=== PATIENT | female | born 1955 | race Caucasian/White ===

== ENCOUNTER 2019-09-10 09:22 | Emergency (ER) | payer OTHER, SELFPAY ==
--- NOTE | ~2019-09-10 | XR_ITS ---
EXAMINATION: XR chest 1V portable EXAM DATE: 09/10/2019 09:51 INDICATION: Slurred speech. TECHNIQUE: Portable AP frontal chest x-ray was obtained. Comparison is made to prior examination from 03/09/2014. FINDINGS: The lungs are clear. There are no pleural effusions. Cardiac silhouette is prominent but magnified on this AP technique. There is no pneumothorax suspected. The bones and soft tissues are unremarkable. Mild hyperinflation. IMPRESSION: No acute cardiopulmonary findings. Reviewed, dictated and finalized at location B. OR
--- NOTE | ~2019-09-10 | CT_ITS ---
EXAMINATION: CT brain wo con DATE: 09/10/2019 09:32 INDICATION: One hour of slurred speech, lack of coordination and unsteady gait and subjective visual disturbance. TECHNIQUE: Computed tomography (CT) of the head was performed without intravenous contrast. Sagittal and coronal reconstructions were performed. The mA was adjusted according to patient size. Iterative reconstruction technique was employed. The dose-length product was 605.33 mGy-cm. COMPARISON: head CT dated 11/21/2015 and brain MR dated 05/14/2019 FINDINGS: No acute intracranial hemorrhage, acute infarction or abnormal extra axial fluid collection. Ventricl es are normal and symmetric. No mass/mass effect. The orbits, paranasal sinuses and mastoid air cells are normal. IMPRESSION: 1. No acute intracranial process. Reviewed, dictated and finalized at location A. [facility]
--- NOTE | 2019-09-10 09:27 | ECG_ITS ---
Measurements Intervals [place] Rate: 68 P: 85 MO: 175 QRS: 28 QRSD: 106 T: 12 QT: 407 QTc: 433 Interpretive Statements SINUS RHYTHM VENTRICULAR PREMATURE COMPLEX BASELINE WANDER- V4 BORDERLINE ECG Electronically Signed On 09-10-2019 11:28:36 OVEN LOADER by Stephane Hughes D.O.
[2019-09-10 09:32] VITALS: BP 158/62; BP 179/103; PULSE 59; PULSE 78; RESP 12; RESP 16; TEMP 37; O2SAT 100; O2SAT 99
--- NOTE | 2019-09-10 09:32 | ED.NEUROSD ---
HPI - Neuro Symptoms/Deficit General Chief Complaint: Suspected CVA Stated Complaint: I dont feel right Time Seen by Provider: 09/10/19 09:39 Source: patient Mode of arrival: ambulatory Limitations: no limitations History of Present Illness HPI Narrative: A 64 y/o female presents to the ED, with c/o sudden onset of dizziness, blurred vision, and BLE weakness that began at 0800 (2 hours ago). Pt notes that she feels funny but when she first woke up she felt fine. She notes her blurred vision is worse in her lt eye and when standing up her dizziness worsens. She denies any alleviating factors. Pt denies any episodes similar to this in the past or any recent illness. She notes having a normal appetite and denies SANTILLAN, SOB or CP. Pt notes having allergies to medications but does not remember the names. She states she has a Hx of low white blood cell count that she is scheduled to follow up with someone about on September 21, 2019. Onset (ago): hour(s) (2) Time: 08:00 Location: other (lt eye, BLE) Quality: weak (BLE) Relieving factors: none Exacerbating factors: other (dizziness worsens upons standing) Context: sudden onset Associated symptoms: weakness (BLE) and other (dizziness, blurred vision) Related Data Home Medications Medication Instructions Recorded Confirmed alprazolam 09/10/19 magnesium oxide 400 mg PO DAILY 09/10/19 09/10/19 Allergies Allergy/AdvReac Type Severity Reaction Status Date / Time levofloxacin Allergy Severe Unknown Verified 09/10/19 11:44 Quinolones Allergy Unknown FACIAL RASH Verified 09/10/19 11:44 Sulfa (Sulfonamide Allergy Unknown RASH ALL Verified 09/10/19 11:44 Antibiotics) OVER sulfamethoxazole Allergy Unknown RASH ALL Verified 09/10/19 11:44 OVER trimethoprim Allergy Unknown RASH ALL Verified 09/10/19 11:44 OVER Review of Systems Review of Systems: All systems reviewed & are unremarkable except as noted in HPI and below Constitutional: Constitutional: Denies headache(s) and Reports other (normal appetite) Eyes: Eyes: Reports blurry vision (lt eye worse than rt) Cardiovascular: Cardiovascular: Denies chest pain Respiratory: Respiratory: Denies dyspnea Musculoskeletal: Musculoskeletal: Reports other (BLE weakness) Neurologic: Reports dizziness PMFSH Past Medical History Medical History (Updated 09/10/19 @ 12:07 by Martin Blank MD) Anemia Anxiety Arthritis CREST syndrome Depression Fibroids Fibromyalgia History of angina History of menorrhagia Hyperthyroidism Kidney stones Systemic lupus erythematosus UTI (urinary tract infection) Surgical History Surgical History (Updated 09/10/19 @ 10:22 by Ramesh GreshamPeople to Remember) H/O inguinal hernia repair History of section History of cholecystectomy History of dilation and curettage History of gastric bypass History of lithotripsy History of repair of ACL rt knee History of thyroidectomy History of tubal ligation Family History Family History (Updated 08/02/15 @ 08:38 by DOCTOR UNKNOWN) Other Family history of chronic obstructive pulmonary disease Social History Social History (Updated 09/10/19 @ 10:23 by Ramesh GreshamPeople to Remember) Smoking status: Former smoker Alcohol intake: never Exam Const: General: healthy appearing and no acute distress Nutritional Appearance: well nourished HENMT: Mouth: Yes lip normal and Yes dry mucous membranes Eyes: Conjunctivae: conjunctivae normal Pupils: Equal, round and reactive pupils present Resp: Effort & Inspection: normal respiratory effort Auscultation: clear to auscultation bilaterally Cardio: Rate: regular rate Rhythm: regular rhythm Heart sounds: no murmurs GI: GI Palp: Yes Soft to palpation and No Tenderness to palpation present (GI) Auscultation: normal bowel sounds Back/Spine/Pelvis: Other: Full ROM Skin: General skin exam: normal color, dry skin and other (warm) Neuro: Speech: dysarthria Motor exam (neuro):
[2019-09-10 09:46] LABS: Glucose Point of Care 91 (65-105)
[2019-09-10 09:47] VITALS: BP 191/76; PULSE 72; RESP 14; O2SAT 100
[2019-09-10 09:55] LABS: Basophils Percent Auto 0.5 % (0.2-1.2); Eosinophils Percent Auto 0.8 % (0-4.4); Hematocrit 43.9 % (37.0-47.0); Hemoglobin 13.8 g/dL (12.0-15.0); Immature Granulocyte Absolute 0.01 K/mm3 (0.00-0.031); Immature Granulocyte Percent A 0.3 % (0-0.5); Lymphocytes Absolute Auto 1.63 K/mm3 (0.9-3.2); Lymphocytes Percent Auto 44.5 % (18.3-44.2); Mean Corpuscular HGB Conc 31.4 g/dl (32-36); Mean Corpuscular Hemoglobin 28.8 pg (26-34); Mean Corpuscular Volume 91.5 fl (80-100); Mean Platelet Volume 11.1 fl (7.4-10.4); Monocytes Absolute Auto 0.3 K/mm3 (0.1-0.6); Monocytes Percent Auto 8.2 % (2.6-8.5); Neutrophils Absolute Auto 1.7 K/mm3 (1.3-6.7); Neutrophils Percent Auto 45.7 % (45.5-73.1); Platelet Count Result 217 k/mm3 (150-375); Red Cell Distribution Width 13.6 % (11.5-14.5); White Blood Count 3.7 K/mm3 (4.5-10.0)
[2019-09-10 10:00] LABS: Blood Urea Nitrogen 19 mg/dL (7-17); Calcium 9.8 mg/dL (8.4-10.2); Carbon Dioxide 29 mmol/L (22-30); Chloride 101 mmol/L (98-107); Estimated CRCL calculation 73 ml/min; Estimated Glomerular Filt Rate > 60; Glucose 94 mg/dL (65-105); Partial Thromboplastin Time 27.7 SECONDS (22.3-36.8); Potassium 3.9 mmol/L (3.4-5.0); Prothrombin Time 12.7 Seconds (11.1-14.7); Sodium 142 mmol/L (137-145)
[2019-09-10 10:12] LABS: Troponin I < 0.012 ng/mL (0.000-0.034)
[2019-09-10] MEDS: SODIUM CHLORIDE 0.9% IV 500 ML 999 ML IV CONT (11:10)
[2019-09-10 11:19] VITALS: BP 158/62; PULSE 59; RESP 12; O2SAT 99
[2019-09-10 11:35] LABS: Add Urine Microscopic? YES; Appearance Urine Cloudy (Clear); Bacteria Urine 1+ /hpf; Bilirubin Urine Negative (Negative); Blood Urine 1+ (Negative); Color Urine Yellow (Yellow); Glucose Urine UA Negative (Negative); Ketones Urine Negative (Negative); Leukocyte Esterase Ur 2+ LEU/UL (Negative); Mucus Urine Rare /lpf; Nitrate Urine Positive (Negative); Protein Urine Negative (Negative); Specific Grav Ur 1.013 (1.001-1.035); Squamous Epithelial Cell Urine Few /hpf (Few); Transitional Epi Cells Urine Rare /hpf (None Seen); Urobilinogen Urine Negative mg/dL (<2.0); WBC Urine 31-50 /hpf
[2019-09-10 11:58] LABS: Alanine Aminotransferase 15 U/L (4-35); Albumin Level 4.7 g/dL (3.5-5.1); Alkaline Phosphatase 126 U/L (38-126); Aspartate Amino Transferase 28 U/L (14-36); Bilirubin,Total 0.7 mg/dL (0.2-1.3)
[2019-09-10] MEDS: NITROFURANTOIN MONOHYD MACROCR 100 MG CAP PO (12:39)
[2019-09-10 12:50] VITALS: BP 164/79; PULSE 62; RESP 16; O2SAT 100
== END 2019-09-10 12:50 | disposition home or self-care (01) ==
PROVIDERS: Emergency Provider Emergency Medicine; PCP Physician Assistant
DX: N30.00 Acute cystitis without hematuria (principal); Z87.891 Personal history of nicotine dependence; Z98.84 Bariatric surgery status; E89.0 Postprocedural hypothyroidism; M19.90 Unspecified osteoarthritis, unspecified site; M79.7 Fibromyalgia; Z87.442 Personal history of urinary calculi; M32.9 Systemic lupus erythematosus, unspecified; F41.9 Anxiety disorder, unspecified; F32.9 Major depressive disorder, single episode, unspecified; M34.1 CR(E)ST syndrome; I49.3 Ventricular premature depolarization
CPT/HCPCS: 36415; 70450; 71045; 80048; 80076; 81001; 82948; 84484; 85025; 85610; 85730; 87077; 87086; 87088; 87186; 93005; 96360; 99284; A9270; J7040

== ENCOUNTER 2019-09-18 07:31 | Outpatient (CLI) | payer OTHER, SELFPAY ==
--- NOTE | 2019-09-18 | ECHO_ITS ---
Patient Info Name: Stacey Angelo Age: 64 years : 1955 Gender: Female Ht: 63 in Wt: 250 lbs BSA: 2.31 m2 HR: 55 bpm BP: 171 / 88 mmHg Heart Rhythm: Sinus Rhythm Technical Quality: Good Exam Date: 09/18/2019 8:07 AM Exam Location: [facility] Patient Status: Outpatient Admit Date: 09/18/2019 Staff Ordering Physician: SoSandra Parliamentary Librarian: Azalea Mcintyre RDCS Attending Provider: SoSandra Exam Type: CA echo doppler color flow Study Info Indications - LE EDEMA Complete two-dimensional, color flow and Doppler transthoracic echocardiogram is performed. Summary 1. Left ventricular chamber dimension is normal. 2. Left ventricular systolic function is normal, estimated at 60-65%. 3. The left ventricular diastolic function is grade I diastolic dysfunction. 4. E/e' 9 is minimally elevated. 5. Left atrial chamber dimension is mildly enlarged. 6. No pulmonary hypertension with RVSP of 38 mmHg. Left Ventricle E/e' 9 is minimally elevated. Left ventricular chamber dimension is normal. Left ventricular systolic function is normal, estimated at 60-65%. The left ventricular diastolic function is grade I diastolic dysfunction. Right Ventricle Right ventricular chamber dimension is normal. Right ventricular systolic function is normal. Left Atria Left atrial chamber dimension is mildly enlarged. Right Atria Right atrial chamber dimension is normal. Aortic Valve The aortic valve is trileaflet. There is no aortic valve stenosis. There is no aortic valve regurgitation. Pulmonic Valve There is no pulmonic regurgitation. Mitral Valve There is no mitral valve stenosis. There is no mitral valve regurgitation. Tricuspid Valve No pulmonary hypertension with RVSP of 38 mmHg. There is mild tricuspid valve regurgitation. Pericardium/Pleural There is no pericardial effusion. Inferior Vena Cava Normal inferior vena cava with >50% collapse upon inspiration consistent with normal right atrial pressure, 5 mmHg. Aorta The aortic root size at the sinus of Valsalva is normal. Tricuspid Valve Name Value Normal Estimated PAP/RSVP RA Pressure 5 mmHg <=5 Report Signatures
== END 2019-09-18 07:32 | disposition home or self-care (01) ==
PROVIDERS: PCP Physician Assistant; Visit Provider Physician Assistant
DX: R60.0 Localized edema (principal)
CPT/HCPCS: 93306

== ENCOUNTER 2021-01-02 10:22 | Emergency (ER) | payer OTHER, SELFPAY ==
--- NOTE | ~2021-01-02 | XR_ITS ---
EXAMINATION: XR shoulder LT min 2V DATE: 01/02/2021 11:45 INDICATION: Left shoulder pain. TECHNIQUE: 4 views of left shoulder were obtained. COMPARISON: None. FINDINGS: Bone alignment is normal. No fracture. There is moderate osteoarthritis of acromioclavicula r joint. Glenohumeral joint is normal. IMPRESSION: 1. Moderate osteoarthritis of acromioclavicular joint. Reviewed, dictated and finalized at location A.
--- NOTE | ~2021-01-02 | CT_ITS ---
EXAMINATION: CT brain wo con DATE: 01/02/2021 11:14 INDICATION: Head injury. TECHNIQUE: Computed tomography (CT) of the head was performed without intravenous contrast. The mA wa s adjusted according to patient size. Iterative reconstruction technique was employed. The dose-lengt h product was 605.33 mGy-cm. COMPARISON: Head CT 09/10/2019 FINDINGS: There are scattered areas of low attenuation in the cerebral white matter, which is within normal limits for the patient's age. There is no intracranial hemorrhage, acute infarction, or abnorm al intracranial mass lesion. The ventricles are normal in size. There is mild mucosal thickening in t he paranasal sinuses. The orbits are normal. The mastoid air cells are normal. There is a right-sided scalp hematoma. IMPRESSION: 1. Normal aging brain. Reviewed, dictated and finalized at location A. IMPRESSION: 1. Normal aging brain.
--- NOTE | ~2021-01-02 | CT_ITS ---
EXAMINATION: CT cervical spine wo con EXAM DATE: 01/02/2021 11:15 INDICATION: Fall, head injury. TECHNIQUE: Spiral CT of the cervical spine was performed without contrast. Axial images were reviewe d. Coronal and sagittal reformatted images cervical spine were also reviewed. The dose-length produc t (DLP) for this examination was 462.52 mGy-cm. The exposure was tailored according to patient size (auto mA exposure control), and iterative reconstruction (ASIR) was used as additional dose reduction technique. Correlation is made to neck CT 03/10/2018. FINDINGS: Probable left thyroid lobectomy. Heterogeneous right thyroid lobe. There is no evidence of acute cervical fracture. The odontoid process is intact. Pre-dens space is normal. Prevertebral so ft tissue is normal. There are no soft tissue abnormalities identified. There is no disc space wide loraine or traumatic vertebral body subluxation suspected. There is advanced upper cervical facet arthr opathy, moderate lower cervical disc disease. A detailed level by level evaluation of spondylosis ca n be added as addendum if requested. IMPRESSION: 1. No acute cervical fracture. 2. Cervical spondylosis. Reviewed, dictated and finalized at location A.
[2021-01-02 10:20] VITALS: BP 155/71; PULSE 67; RESP 13; TEMP 36.8; O2SAT 97
--- NOTE | 2021-01-02 10:57 | ED.FALL ---
HPI - Fall General Chief Complaint: Fall Stated Complaint: fall Time Seen by Provider: 01/02/21 10:39 Source: patient Mode of arrival: ambulatory Limitations: no limitations History of Present Illness HPI Narrative: Patient is a 65 year old female who presents by EMS after fall in her bathroom. She reports she was changing toilet paper in sharp and leaning on sharp when sharp fell from wall and patient fell hitting head on bathtub. Patient denies LOC. Patient denies other injuries. Patient reports tenderness and hematoma to top of head. She reports that she is not on anticoagulants. Related Data Home Medications Medication Instructions Recorded Confirmed alprazolam 09/10/19 magnesium oxide 400 mg PO DAILY 09/10/19 09/10/19 Allergies Allergy/AdvReac Type Severity Reaction Status Date / Time levofloxacin Allergy Severe Unknown Verified 01/02/21 10:39 Quinolones Allergy Unknown FACIAL RASH Verified 01/02/21 10:39 Sulfa (Sulfonamide Allergy Unknown RASH ALL Verified 01/02/21 10:39 Antibiotics) OVER sulfamethoxazole Allergy Unknown RASH ALL Verified 01/02/21 10:39 OVER trimethoprim Allergy Unknown RASH ALL Verified 01/02/21 10:39 OVER Review of Systems Review of Systems: Narrative: CONSTITUTIONAL: Denies fever, chills, or sweats. EYES: Denies visual changes, redness, or discharge. ENT: Denies rhinorrhea, congestion, sore throat, or otalgia. CARDIOVASCULAR: Denies chest pain, palpitations, or edema. RESPIRATORY: Denies cough or dyspnea. GASTROINTESTINAL: Denies abdominal pain, nausea, vomiting, or diarrhea. GENITOURINARY: Denies dysuria or hematuria. SKIN: Denies rash or itching. MUSCULOSKELETAL: Denies back pain, joint pain, or myalgia. NEUROLOGIC: Reports head pain, denies numbness, dizziness, or weakness. PSYCHIATRIC: Denies anxiety or depression. [facility] Past Medical History Medical History Anemia Anxiety Arthritis CREST syndrome Depression Fibroids Fibromyalgia History of angina History of menorrhagia Hyperthyroidism Kidney stones Systemic lupus erythematosus UTI (urinary tract infection) Surgical History Surgical History H/O inguinal hernia repair History of section History of cholecystectomy History of dilation and curettage History of gastric bypass History of lithotripsy History of repair of ACL rt knee History of thyroidectomy History of tubal ligation Family History Family History Other Family history of chronic obstructive pulmonary disease Social History Social History (Updated 01/02/21 @ 11:01 by ANURADHA Olivas) Smoking status: Former smoker Alcohol intake: never Substance use: never Comments At the time of signature, I have reviewed and agree with nursing past medical, surgical, social, and family history unless otherwise noted. Please see nursing chart for further information. There is no relevant family history pertinent to the presenting complaint. Exam Narrative: Exam Narrative: GENERAL: Well-appearing, well-nourished, and in no acute distress. HEAD: Normocephalic, atraumatic. EYES: EOMI. No redness or drainage. Conjunctiva are normal. ENT: Mucous membranes pink and moist. CHEST: No respiratory distress. Clear to auscultation. HEART: Regular rate and rhythm. EXTREMITIES: Normal range of motion. No edema. SKIN: Hematoma to right parietal area, tenderness with palpation NEURO: No focal deficits. Alert and oriented x3. Gait steady. PSYCH: Normal affect. No signs of depression or anxiety. Course Vital Signs Vital signs: Vital Signs Temperature 36.8 C 01/02/21 10:20 Pulse Rate 67 01/02/21 10:20 Respiratory Rate 13 01/02/21 10:20 Blood Pressure 155/71 H 01/02/21 10:20 Pulse Oximetry 97 01/02/21 10:20 Temperature 36.8 C 01/02/21 10:20 Pul
[2021-01-02 11:50] VITALS: BP 155/71; PULSE 66; RESP 15; O2SAT 98
[2021-01-02 12:43] VITALS: BP 160/60; PULSE 65; RESP 16; O2SAT 99
== END 2021-01-02 13:36 | disposition home or self-care (01) ==
PROVIDERS: Emergency Provider Nurse Practitioner; PCP Physician Assistant
DX: S00.03XA Contusion of scalp, initial encounter (principal); M32.9 Systemic lupus erythematosus, unspecified; M79.7 Fibromyalgia; M34.1 CR(E)ST syndrome; M19.90 Unspecified osteoarthritis, unspecified site; F32.9 Major depressive disorder, single episode, unspecified; F41.9 Anxiety disorder, unspecified; Z87.440 Personal history of urinary (tract) infections; Z98.84 Bariatric surgery status; E89.0 Postprocedural hypothyroidism; W01.198A Fall on same level from slipping, tripping and stumbling with subsequent striking against other object, initial encounter
CPT/HCPCS: 70450; 72125; 73030; 99284

== ENCOUNTER 2023-06-03 12:15 | Emergency (ER) | payer OTHER, MEDICAID, SELFPAY ==
[2023-06-03 12:54] VITALS: BP 110/54; PULSE 73; RESP 22; TEMP 36.4; O2SAT 96
--- NOTE | 2023-06-03 13:34 | ED.GENADULT ---
HPI - General Adult General Chief complaint: Urogenital-Female <Serenity Recio November, - Last Filed: 06/03/23 13:40> Stated complaint: catheter problems <Serenity Recio November, - Last Filed: 06/03/23 13:40> Time Seen by Provider: 06/03/23 15:17 <Serenity Recio November,N - Last Filed: 06/03/23 13:40> History of Present Illness HPI narrative: Stacey Angelo is a 68 y/o female with PMhx of ALS who presents [facility] reports of being evaluated at the urology clinic today and was sent down here to be evaluated to have her catheter changed out and concern for UTI/ Patient denies any known fever/chills reports of new pain around her catheter for 2 days. Patient's daughter states that pt was also dropped by her PCP today and needs a case briefer referral to get set up for home health. <Serenity Recio November, - Last Filed: 06/03/23 13:40> Related Data Home medications: Home Medications Medication Instructions Recorded Confirmed alprazolam 0.25 mg tablet 09/10/19 magnesium oxide 400 mg PO DAILY 09/10/19 09/10/19 <Serenity Recio November, - Last Filed: 06/03/23 13:40> Allergies/adverse reactions: Allergies Allergy/AdvReac Type Severity Reaction Status Date / Time levofloxacin Allergy Severe Unknown Verified 06/03/23 15:56 Quinolones Allergy Unknown FACIAL RASH Verified 06/03/23 15:56 Sulfa (Sulfonamide Allergy Unknown RASH ALL Verified 06/03/23 15:56 Antibiotics) OVER sulfamethoxazole Allergy Unknown RASH ALL Verified 06/03/23 15:56 OVER trimethoprim Allergy Unknown RASH ALL Verified 06/03/23 15:56 OVER <Serenity Recio November,N - Last Filed: 06/03/23 13:40> Review of Systems Review of Systems: All systems reviewed & are unremarkable except as noted in HPI and below <Geremias Weiner MD - Last Filed: 06/03/23 18:25> Cardiovascular: Cardiovascular: Reports no additional cardiovascular complaints <Geremias Weiner MD - Last Filed: 06/03/23 18:25> Respiratory: Respiratory: Reports no additional respiratory complaints <Geremias Weiner MD - Last Filed: 06/03/23 18:25> Gastrointestinal: Gastrointestinal: Reports no additional gastrointestinal complaints <Geremias Weiner MD - Last Filed: 06/03/23 18:25> Genitourinary: Genitourinary: Denies hematuria, Denies nocturia, Denies dysuria and Denies pelvic pain <Geremias Weiner MD - Last Filed: 06/03/23 18:25> Comments: Dirty Quintanilla catheter <Geremias Weiner MD - Last Filed: 06/03/23 18:25> PMFSH Past Medical History Medical History: Medical History (Updated 06/03/23 @ 18:18 by Geremias Weiner MD) ALS (amyotrophic lateral sclerosis) Anemia Anxiety Arthritis CREST syndrome Depression Fibroids Fibromyalgia History of angina History of menorrhagia Hyperthyroidism Kidney stones Systemic lupus erythematosus UTI (urinary tract infection) <Serenity Steinberg, BREADING MACHINE TENDER - Last Filed: 06/03/23 13:40> Surgical History Surgical History: Surgical History H/O inguinal hernia repair History of section History of cholecystectomy History of dilation and curettage History of gastric bypass History of lithotripsy History of repair of ACL rt knee History of thyroidectomy History of tubal ligation <Serenity Steinberg - Last Filed: 06/03/23 13:40> Family History Family History: Family History Other Family history of chronic obstructive pulmonary disease <Serenity Steinberg - Last Filed: 06/03/23 13:40> Social History Social History: Social History (Updated 01/02/21 @ 11:01 by Audrey Victoria, CLASSROOM MONITOR) Smoking status: Former smoker Alcohol intake: never Substance use: never <Serenity Steinberg - Last Filed: 06/03/23 13:40> Exam Narrative: GENERAL: Chronically ill-appearing, well-nourished, and in no acute distress. HEAD: Normocephalic, atraumatic. ENT: Mucous membranes moist.
[2023-06-03 15:32] VITALS: BP 124/78; PULSE 78; RESP 12; O2SAT 97
[2023-06-03 15:38] LABS: Basophils Percent Auto 0.5 % (0.2-1.2); Eosinophils Absolute Auto 0.1 K/mm3 (0-0.3); Eosinophils Percent Auto 2.1 % (0-4.4); Hematocrit 42.3 % (37.0-47.0); Hemoglobin 12.8 g/dL (12.0-15.0); Immature Granulocyte Absolute 0.01 K/mm3 (0.00-0.031); Immature Granulocyte Percent A 0.2 % (0-0.5); Lymphocytes Absolute Auto 1.41 K/mm3 (0.9-3.2); Lymphocytes Percent Auto 33.2 % (18.3-44.2); Mean Corpuscular HGB Conc 30.3 g/dl (32-36); Mean Corpuscular Hemoglobin 28.2 pg (26-34); Mean Corpuscular Volume 93.2 fl (80-100); Mean Platelet Volume 10.9 fl (7.4-10.4); Monocytes Absolute Auto 0.2 K/mm3 (0.1-0.6); Monocytes Percent Auto 5.4 % (2.6-8.5); Neutrophils Absolute Auto 2.5 K/mm3 (1.3-6.7); Neutrophils Percent Auto 58.6 % (45.5-73.1); Platelet Count Result 284 k/mm3 (150-375); Red Blood Count 4.54 M/mm3 (4.2-5.4); White Blood Count 4.3 K/mm3 (4.5-10.0)
--- NOTE | 2023-06-03 15:49 | PC.NURSE ---
Pt's catheter that she had on arrival was removed by this RN, catheter fully intact. Pt has small area of skin breakdown where previous catheter stabilization device was placed.
[2023-06-03 15:52] LABS: Alanine Aminotransferase 16 U/L (6-35); Albumin Level 4.5 g/dL (3.5-5.1); Alkaline Phosphatase 134 U/L (38-126); Anion Gap 9 mmol/L (8-16); Aspartate Amino Transferase 31 U/L (14-36); Blood Urea Nitrogen 17 mg/dL (7-17); Calcium 9.8 mg/dL (8.4-10.2); Carbon Dioxide 27 mmol/L (22-30); Chloride 105 mmol/L (98-107); Estimated CRCL calculation 76 ml/min; Estimated Glomerular Filt Rate > 60; Glucose 93 mg/dL (65-110); Potassium 3.9 mmol/L (3.4-5.0); Sodium 141 mmol/L (137-145)
[2023-06-03 15:53] VITALS: BP 121/80; PULSE 72; RESP 13; O2SAT 96
[2023-06-03 16:23] LABS: Appearance Urine Turbid (Clear); Bacteria Urine 4+ /hpf; Bilirubin Urine 1+ (Negative); Blood Urine 3+ (Negative); Color Urine Dark Yellow (Yellow); Glucose Urine UA Negative (Negative); Hyaline Casts Urine Present /lpf; Ketones Urine Trace mg/dL (Negative); Leukocyte Esterase Ur 3+ LEU/UL (Negative); Nitrate Urine Positive (Negative); Non Pathogenic Casts >20; Protein Urine 3+ mg/dL (Negative); RBC Urine >100 /hpf (0-2); Specific Grav Ur 1.023 (1.001-1.035); Squamous Epithelial Cell Urine Many /hpf (Few); WBC Urine >100 /hpf
[2023-06-03 16:25] LABS: Add Urine Microscopic? YES
--- NOTE | 2023-06-03 16:27 | PCCCNOTE ---
Pt. requested care coordination to see her regarding a home health agency. Pt. said her PCP, Sandra ALFREDO, Dropped her from her care today, d/t not wanting to go into a halfway . Pt. has no PCP at this time. In the past month she has used [facility] home health. I gave her the handout and scan card for her to find a new PCP before home health can be set back up. Pt verbalized understanding.
[2023-06-03 17:24] VITALS: BP 128/61; PULSE 73; RESP 12; O2SAT 98
[2023-06-03 17:49] VITALS: BP 128/65; PULSE 78; RESP 15; O2SAT 94
[2023-06-03 18:41] VITALS: BP 114/69; PULSE 77; RESP 13; O2SAT 96
== END 2023-06-03 18:44 | disposition home or self-care (01) ==
PROVIDERS: Nurse Practitioner Family; Emergency Provider Emergency Medicine
DX: N39.0 Urinary tract infection, site not specified (principal); G12.21 Amyotrophic lateral sclerosis; M32.9 Systemic lupus erythematosus, unspecified; M79.7 Fibromyalgia; E89.0 Postprocedural hypothyroidism; F32.A Depression, unspecified; F41.9 Anxiety disorder, unspecified; Z98.84 Bariatric surgery status; Z87.442 Personal history of urinary calculi; Z87.440 Personal history of urinary (tract) infections; Z87.891 Personal history of nicotine dependence; Z90.49 Acquired absence of other specified parts of digestive tract
CPT/HCPCS: 36415; 51702; 80053; 81001; 83605; 85025; 87086; 87088; 99283

== ENCOUNTER 2023-06-08 11:50 | Emergency (ER) | payer OTHER, MEDICAID, SELFPAY ==
[2023-06-08 11:52] VITALS: BP 190/86; PULSE 61; RESP 16; TEMP 36.6; O2SAT 98
--- NOTE | 2023-06-08 12:11 | ED.FEMALEGU ---
HPI - Female Genitourinary General Chief complaint: Urogenital-Female Stated complaint: leaking catheter Time Seen by Provider: 06/08/23 11:53 History of Present Illness HPI Narrative: Patient with ALS p/w leaking catheter, likely clogged. This will be replaced here. Patient denies any other complaints, no f/c or dysuria or abd pain. Related Data Home Medications Medication Instructions Recorded Confirmed alprazolam 0.25 mg tablet 09/10/19 magnesium oxide 400 mg PO DAILY 09/10/19 09/10/19 Allergies Allergy/AdvReac Type Severity Reaction Status Date / Time levofloxacin Allergy Severe Unknown Verified 06/08/23 12:02 Quinolones Allergy Unknown FACIAL RASH Verified 06/08/23 12:02 Sulfa (Sulfonamide Allergy Unknown RASH ALL Verified 06/08/23 12:02 Antibiotics) OVER sulfamethoxazole Allergy Unknown RASH ALL Verified 06/08/23 12:02 OVER trimethoprim Allergy Unknown RASH ALL Verified 06/08/23 12:02 OVER lidocaine AdvReac Rash Verified 06/08/23 12:02 Review of Systems Review of Systems: CONST: No fever. HEENT: No sore throat C/V: No chest pain RESP: No cough GI: no abdominal pain : Dysfunctional Quintanilla M/S: No joint pain. SKIN: No rash. NEURO: Chronic weakness PSYCH: [No depression] PMFSH Past Medical History Medical History (Updated 06/08/23 @ 12:18 by Rhina Darnell MD) ALS (amyotrophic lateral sclerosis) Anemia Anxiety Arthritis CREST syndrome Depression Fibroids Fibromyalgia History of angina History of menorrhagia Hyperthyroidism Kidney stones Systemic lupus erythematosus UTI (urinary tract infection) Surgical History Surgical History H/O inguinal hernia repair History of section History of cholecystectomy History of dilation and curettage History of gastric bypass History of lithotripsy History of repair of ACL rt knee History of thyroidectomy History of tubal ligation Family History Family History Other Family history of chronic obstructive pulmonary disease Social History Social History (Updated 01/02/21 @ 11:01 by Audrey Victoria, PERSONAL ASSISTANT) Smoking status: Former smoker Alcohol intake: never Substance use: never Exam Narrative: EXAMINATION OF ORGAN SYSTEMS/BODY AREAS: Constitutional: Vital signs per nursing GENERAL:[No acute distress, non-toxic appearing.] HEAD: Normal with no signs of head trauma. EYES: EOMI, conjunctiva normal ENT: Hearing grossly intact LUNGS: Nonlabored breathing. HEART: [Regular rate and rhythm] ABD: [Soft], [nontender to palpation] EXT: No deformities SKIN: [No rashes or lesions.] No decub ulcers NEURO: [Alert and oriented x 3. Answering questions clearly.] PSYCH: Normal affect Course Vital Signs Vital signs: Vital Signs Temperature 97.8 F 06/08/23 11:52 Pulse Rate 61 06/08/23 11:52 Respiratory Rate 16 06/08/23 11:52 Blood Pressure 190/86 H 06/08/23 11:52 Pulse Oximetry 98 06/08/23 11:52 Oxygen Delivery Room Air 06/08/23 11:52 Temperature 97.8 F 06/08/23 11:52 Pulse Rate 53 L 06/08/23 12:25 Respiratory Rate 16 06/08/23 12:25 Blood Pressure 178/78 H 06/08/23 12:25 Pulse Oximetry 99 06/08/23 12:25 Oxygen Delivery Room Air 06/08/23 11:52 MDM - Female Genitourinary MDM Narrative Medical decision making narrative: Patient presents here for Quintanilla issues, she is well-appearing on exam, she is already on a course of antibiotics from a few days ago for UTI, I did review urine culture and noted that the culture was not consistent with urinary tract infection. Her blood pressure was initially high here, I did review her chart and noted that she has had blood pressure that was even higher in the past, and I had a few days ago that was normal, given the fluctuance I will not start her on blood pressure medications at this time but will defer to pr
--- NOTE | 2023-06-08 12:24 | PC.NURSE ---
Dr. Osborn ok'd the placement of the pt 18fr brought from home.
[2023-06-08 12:25] VITALS: BP 178/78; PULSE 53; RESP 16; O2SAT 99
--- NOTE | 2023-06-08 12:25 | PC.NURSE ---
Dr. Mann lane'saulo the placement of the pt 18fr brought from home.
[2023-06-08 14:04] VITALS: BP 156/62; PULSE 65; RESP 16; O2SAT 97
== END 2023-06-08 15:02 | disposition home or self-care (01) ==
LOC: ANHED 12:36
PROVIDERS: Emergency Provider Emergency Medicine
DX: T83.031A Leakage of indwelling urethral catheter, initial encounter (principal); I10 Essential (primary) hypertension; G12.21 Amyotrophic lateral sclerosis; M32.9 Systemic lupus erythematosus, unspecified; M79.7 Fibromyalgia; M19.90 Unspecified osteoarthritis, unspecified site; E89.0 Postprocedural hypothyroidism; F32.A Depression, unspecified; F41.9 Anxiety disorder, unspecified; Z98.84 Bariatric surgery status; Z87.440 Personal history of urinary (tract) infections; Z87.891 Personal history of nicotine dependence; Z90.49 Acquired absence of other specified parts of digestive tract; Y84.6 Urinary catheterization as the cause of abnormal reaction of the patient, or of later complication, without mention of misadventure at the time of the procedure
CPT/HCPCS: 51702; 99283

== ENCOUNTER 2023-06-11 19:31 | Emergency (ER) | payer OTHER, MEDICAID, SELFPAY ==
--- NOTE | ~2023-06-11 | CT_ITS ---
EXAMINATION: CT abdomen pelvis w con DATE: 06/11/2023 21:56 INDICATION: pain TECHNIQUE: Computed tomography (CT) of the abdomen and pelvis was performed with intravenous contrast . Automated exposure control and iterative reconstruction technique were employed. The dose-length pr oduct was 1407.83 mGy-cm. COMPARISON: 08/13/2016. FINDINGS: Lower thorax: Bibasilar scar/atelectasis. Liver: Normal. Biliary/Gallbladder: Gallbladder is absent. No bile duct dilation. Pancreas: No mass or duct dilation. Mild atrophy. Spleen: Granulomatous calcifications. Adrenals:No mass. Kidneys: Nonobstructive bilateral calyceal and left pelvis calcifications. No suspicious mass, obstru cting stone, or hydronephrosis. GI tract: Prior gastric surgery. Uncomplicated distal small bowel anastomosis. No small or large he l dilation. Normal appendix. Mesentery/Peritoneum: No ascites, mass, or free air. Retroperitoneum: No mass. Atherosclerotic abdominal aortic and/or arterial calcifications. Pelvis: Pelvic organs are within normal limits. Soft Tissues: Soft tissues and body wall unremarkable. Bones: No acute osseous finding. IMPRESSION: No acute abdominopelvic process detected. Reviewed, dictated and finalized at location K. EMENT COORDINATOR
[2023-06-11 19:30] VITALS: BP 119/72; PULSE 74; RESP 20; TEMP 36.5; O2SAT 97
[2023-06-11 19:52] LABS: Basophils Percent Auto 0.5 % (0.2-1.2); Eosinophils Absolute Auto 0.1 K/mm3 (0-0.3); Eosinophils Percent Auto 1.6 % (0-4.4); Hematocrit 40.4 % (37.0-47.0); Hemoglobin 12.5 g/dL (12.0-15.0); Lymphocytes Absolute Auto 1.29 K/mm3 (0.9-3.2); Lymphocytes Percent Auto 34.7 % (18.3-44.2); Mean Corpuscular HGB Conc 30.9 g/dl (32-36); Mean Corpuscular Hemoglobin 28.2 pg (26-34); Monocytes Absolute Auto 0.2 K/mm3 (0.1-0.6); Monocytes Percent Auto 5.4 % (2.6-8.5); Neutrophils Absolute Auto 2.2 K/mm3 (1.3-6.7); Neutrophils Percent Auto 57.8 % (45.5-73.1); Platelet Count Result 253 k/mm3 (150-375); Red Blood Count 4.44 M/mm3 (4.2-5.4); Red Cell Distribution Width 15.9 % (11.5-14.5); White Blood Count 3.7 K/mm3 (4.5-10.0)
[2023-06-11 20:01] LABS: Alanine Aminotransferase 42 U/L (6-35); Albumin Level 4.1 g/dL (3.5-5.1); Alkaline Phosphatase 181 U/L (38-126); Anion Gap 10 mmol/L (8-16); Aspartate Amino Transferase 192 U/L (14-36); Blood Urea Nitrogen 13 mg/dL (7-17); Calcium 9.6 mg/dL (8.4-10.2); Carbon Dioxide 27 mmol/L (22-30); Chloride 104 mmol/L (98-107); Estimated Glomerular Filt Rate > 60; Glucose 96 mg/dL (65-110); Lipase 76 U/L (23-300); Potassium 3.7 mmol/L (3.4-5.0); Sodium 141 mmol/L (137-145)
[2023-06-11 20:03] LABS: Lactic Acid Reflex 0.8 mmol/L (0.7-2.0)
[2023-06-11 20:12] LABS: Troponin I < 0.012 ng/mL (0.000-0.034)
[2023-06-11 20:18] LABS: Appearance Urine Turbid (Clear); Bacteria Urine 4+ /hpf; Bilirubin Urine 1+ (Negative); Blood Urine 3+ (Negative); Calcium Oxalate Crystals Urine Present /hpf; Color Urine Dark Yellow (Yellow); Glucose Urine UA Negative (Negative); Ketones Urine Trace mg/dL (Negative); Leukocyte Esterase Ur 3+ LEU/UL (Negative); Need Manual Microscopic Reviewed; Nitrate Urine Positive (Negative); Protein Urine 2+ mg/dL (Negative); RBC Urine >100 /hpf (0-2); Specific Grav Ur 1.023 (1.001-1.035); Squamous Epithelial Cell Urine Moderate /hpf (Few); WBC Urine >100 /hpf
[2023-06-11 20:19] LABS: Add Urine Microscopic? YES
[2023-06-11] MEDS: SODIUM CHLORIDE 0.9% IV 1,000 ML 999 ML IV CONT (20:35)
[2023-06-11] MEDS: ONDANSETRON INJ 4 MG/2 ML VIAL IV PUSH (20:35)
[2023-06-11 21:30] VITALS: BP 117/61; PULSE 69; RESP 14; O2SAT 94
[2023-06-11 23:30] VITALS: BP 130/70; PULSE 63; RESP 14; O2SAT 94
--- NOTE | 2023-06-11 23:37 | ED.ABDPAIN ---
HPI - Abdominal Pain General Chief Complaint: Abdominal Pain Stated Complaint: abd pain, diarrhea Time Seen by Provider: 06/11/23 19:33 History of Present Illness HPI narrative: Patient presents to the emergency department by home with persistent diarrhea, nausea and mid abdominal pain. She has had symptoms similar to this in the past. Patient lives with family at home. Related Data Home Medications Medication Instructions Recorded Confirmed alprazolam 0.25 mg tablet 09/10/19 magnesium oxide 400 mg PO DAILY 09/10/19 09/10/19 Allergies Allergy/AdvReac Type Severity Reaction Status Date / Time levofloxacin Allergy Severe Unknown Verified 06/11/23 19:36 Quinolones Allergy Unknown FACIAL RASH Verified 06/11/23 19:36 Sulfa (Sulfonamide Allergy Unknown RASH ALL Verified 06/11/23 19:36 Antibiotics) OVER sulfamethoxazole Allergy Unknown RASH ALL Verified 06/11/23 19:36 OVER trimethoprim Allergy Unknown RASH ALL Verified 06/11/23 19:36 OVER lidocaine AdvReac Rash Verified 06/11/23 19:36 Review of Systems Review of Systems: Review of systems negative except as documented in the HPI PMFSH Past Medical History Medical History (Updated 06/12/23 @ 00:33 by Irene Peterson MD) ALS (amyotrophic lateral sclerosis) Anemia Anxiety Arthritis CREST syndrome Depression Fibroids Fibromyalgia History of angina History of menorrhagia Hyperthyroidism Kidney stones Systemic lupus erythematosus UTI (urinary tract infection) Surgical History Surgical History H/O inguinal hernia repair History of section History of cholecystectomy History of dilation and curettage History of gastric bypass History of lithotripsy History of repair of ACL rt knee History of thyroidectomy History of tubal ligation Family History Family History Other Family history of chronic obstructive pulmonary disease Social History Social History (Updated 01/02/21 @ 11:01 by Audrey Victoria, STAND GRINDER) Smoking status: Former smoker Alcohol intake: never Substance use: never Exam Narrative: GENERAL: Well-appearing, well-nourished, and in no acute distress. HEAD: Normocephalic, atraumatic. EYES: PERRLA and EOMI. ENT: Nares clear, no rhinorrhea or epistaxis. Mucous membranes moist. NECK: Supple. CHEST: Clear to auscultation. No respiratory distress. HEART: Regular rate and rhythm. ABDOMEN: Soft, nontender, nondistended. EXTREMITIES: Normal range of motion. No edema. SKIN: Warm, dry, no rash. NEURO: No focal deficits. Alert and oriented x3. PSYCH: Normal mood and affect. Course Course Emergency Course: I evaluated the patient and she is feeling better. Denies current complaints. Persistent diarrhea during stay, C diff pending Vital Signs Vital signs: Vital Signs Temperature 36.5 C 06/11/23 19:30 Pulse Rate 74 06/11/23 19:30 Respiratory Rate 20 06/11/23 19:30 Blood Pressure 119/72 06/11/23 19:30 Pulse Oximetry 97 06/11/23 19:30 Oxygen Delivery Room Air 06/11/23 19:30 Temperature 36.5 C 06/11/23 19:30 Pulse Rate 74 06/11/23 19:30 Respiratory Rate 20 06/11/23 19:30 Blood Pressure 119/72 06/11/23 19:30 Pulse Oximetry 97 06/11/23 19:30 Oxygen Delivery Room Air 06/11/23 19:30 MDM - Abdominal Pain Lab Data 06/11/23 19:45 06/11/23 19:45 Labs: Lab Results 06/11/23 Range/Units 19:45 WBC 3.7 L (4.5-10.0) K/mm3 RBC 4.44 (4.2-5.4) M/mm3 Hgb 12.5 (12.0-15.0) g/dL Hct 40.4 (37.0-47.0) % MCV 91.0 (80-100) fl MCH 28.2 (26-34) pg MCHC 30.9 L (32-36) g/dl RDW 15.9 H (11.5-14.5) % Plt Count 253 (150-375) k/mm3 MPV 10.0 (7.4-10.4) fl Immature Gran % (Auto) 0.0 (0-0.5) % Neut % (Auto) 57.8 (45.5-73.1) % Lymph % (Auto) 34.7 (18.3-44.2) % Clinch % (Auto) 5.4 (
[2023-06-12] MEDS: cefTRIAXone 2 GM/NS 100 ML 2 GM/100 ML BAG IVPB (00:35)
[2023-06-12 01:35] VITALS: BP 130/77; PULSE 80; RESP 19; O2SAT 99
[2023-06-12 02:01] VITALS: BP 118/65; PULSE 65; RESP 14; O2SAT 99
== END 2023-06-12 06:30 | disposition home or self-care (01) ==
PROVIDERS: Emergency Provider Emergency Medicine
DX: R19.7 Diarrhea, unspecified (principal); R10.9 Unspecified abdominal pain; R94.5 Abnormal results of liver function studies; Z87.891 Personal history of nicotine dependence
CPT/HCPCS: 36415; 74177; 80053; 81001; 83605; 83690; 84484; 85025; 87077; 87086; 87186; 96361; 96365; 96375; 99284; J0696; J2405; J7030; Q9967

== ENCOUNTER 2023-06-21 18:09 | Emergency (ER) | payer OTHER, MEDICAID, SELFPAY ==
[2023-06-21 18:25] VITALS: BP 123/75; PULSE 78; RESP 18; TEMP 36.8; O2SAT 95
--- NOTE | 2023-06-21 19:43 | ED.GENADULT ---
HPI - General Adult General Chief complaint: Unspecified Stated complaint: leaking catheter Time Seen by Provider: 06/21/23 19:05 History of Present Illness HPI narrative: This is a 68-year-old female with ALS presenting for leaking catheter. She notes earlier today seeking. She does not have any abdominal pain fevers chills nausea vomiting diarrhea. She does not feel like she has a UTI. She can typically tell when she has an infection. no other complaints. Related Data Home Medications Medication Instructions Recorded Confirmed alprazolam 0.25 mg tablet 09/10/19 magnesium oxide 400 mg PO DAILY 09/10/19 09/10/19 Allergies Allergy/AdvReac Type Severity Reaction Status Date / Time levofloxacin Allergy Severe Unknown Verified 06/11/23 19:36 Quinolones Allergy Unknown FACIAL RASH Verified 06/11/23 19:36 Sulfa (Sulfonamide Allergy Unknown RASH ALL Verified 06/11/23 19:36 Antibiotics) OVER sulfamethoxazole Allergy Unknown RASH ALL Verified 06/11/23 19:36 OVER trimethoprim Allergy Unknown RASH ALL Verified 06/11/23 19:36 OVER lidocaine AdvReac Rash Verified 06/11/23 19:36 [facility] Past Medical History Medical History ALS (amyotrophic lateral sclerosis) Anemia Anxiety Arthritis CREST syndrome Depression Fibroids Fibromyalgia History of angina History of menorrhagia Hyperthyroidism Kidney stones Systemic lupus erythematosus UTI (urinary tract infection) Surgical History Surgical History H/O inguinal hernia repair History of section History of cholecystectomy History of dilation and curettage History of gastric bypass History of lithotripsy History of repair of ACL rt knee History of thyroidectomy History of tubal ligation Family History Family History Other Family history of chronic obstructive pulmonary disease Social History Social History Smoking status: Former smoker Alcohol intake: never Substance use: never Exam Narrative: APPEARANCE: Chronically debilitated, slurred speech which is normal for Head: atraumatic. EYES: EOMI, NOSE: Atraumatic NECK: Trachea midline RESPIRATORY: No increased rate of breathing CARDIOVASCULAR: RRR, ABDOMINAL: Non-distended, soft nontender no guarding or rebound MUSCULOSKELETAl: No obvious deformities NEURO: Alert. SKIN:: Warm, dry. Normal color PSYCHIATRIC: Normal affect Course Vital Signs Vital signs: Vital Signs Temperature 98.3 F 06/21/23 18:25 Pulse Rate 78 06/21/23 18:25 Respiratory Rate 18 06/21/23 18:25 Blood Pressure 123/75 06/21/23 18:25 Pulse Oximetry 95 06/21/23 18:25 Oxygen Delivery Room Air 06/21/23 18:25 Temperature 98.3 F 06/21/23 18:25 Pulse Rate 78 06/21/23 18:25 Respiratory Rate 18 06/21/23 18:25 Blood Pressure 123/75 06/21/23 18:25 Pulse Oximetry 95 06/21/23 18:25 Oxygen Delivery Room Air 06/21/23 18:25 Medical Decision Making MDM Narrative Medical decision making narrative: -Course: 68-year-old female with a last presenting with catheter difficulty. Catheter was replaced placed. It is now functioning normally. Patient has stable vital signs no other complaints. She will be discharged back home. Urine culture results have been sent. -DDX includes but is not limited to:Leaking catheter, uti -Co-morbidities complicating care:ALS -Social determinants of health: disabled -Shared decision making / Disposition: discharged Vital Signs Vital Signs: Vital Signs Temperature 98.3 F 06/21/23 18:25 Pulse Rate 78 06/21/23 18:25 Respiratory Rate 18 06/21/23 18:25 Blood Pressure 123/75 06/21/23 18:25 Pulse Oximetry 95 06/21/23 18:25 Oxygen Delivery Room Air 06/21/23 18:25 Temperature 98.3 F 06/21/23
[2023-06-21 19:57] LABS: Amorphous Sediment Urine Present; Appearance Urine Turbid (Clear); Bacteria Urine 4+ /hpf; Bilirubin Urine Negative (Negative); Blood Urine 3+ (Negative); Calcium Oxalate Crystals Urine Present /hpf; Color Urine Dark Yellow (Yellow); Glucose Urine UA Negative (Negative); Ketones Urine Trace mg/dL (Negative); Leukocyte Esterase Ur 3+ LEU/UL (Negative); Mucus Urine Present /lpf; Need Manual Microscopic Reviewed; Nitrate Urine Positive (Negative); Non Pathogenic Casts >20; Protein Urine 2+ mg/dL (Negative); RBC Urine >100 /hpf (0-2); Specific Grav Ur 1.021 (1.001-1.035); Squamous Epithelial Cell Urine Many /hpf (Few); WBC Urine >100 /hpf
[2023-06-21 19:59] LABS: Add Urine Microscopic? YES
[2023-06-21 20:02] VITALS: BP 118/73; PULSE 73; RESP 20; O2SAT 93
[2023-06-21 20:16] VITALS: BP 112/78; PULSE 74; RESP 20; O2SAT 94
== END 2023-06-21 20:44 | disposition home or self-care (01) ==
PROVIDERS: Emergency Provider Emergency Medicine
DX: T83.038A Leakage of other urinary catheter, initial encounter (principal); G12.21 Amyotrophic lateral sclerosis; E05.90 Thyrotoxicosis, unspecified without thyrotoxic crisis or storm; M19.90 Unspecified osteoarthritis, unspecified site; M79.7 Fibromyalgia; M32.9 Systemic lupus erythematosus, unspecified; F32.A Depression, unspecified; F41.9 Anxiety disorder, unspecified; Z87.442 Personal history of urinary calculi; Z87.440 Personal history of urinary (tract) infections; Z86.2 Personal history of diseases of the blood and blood-forming organs and certain disorders involving the immune mechanism; Z87.891 Personal history of nicotine dependence; Y84.6 Urinary catheterization as the cause of abnormal reaction of the patient, or of later complication, without mention of misadventure at the time of the procedure
CPT/HCPCS: 51702; 81001; 87077; 87086; 87186; 99283

== ENCOUNTER 2023-06-24 15:34 | Emergency (ER) | payer OTHER, MEDICAID, SELFPAY ==
[2023-06-24] VITALS (13 sets, daily range): BP systolic 122–155; BP diastolic 72–86; PULSE 84–94; RESP 14–20; TEMP 37.5–38.6; O2SAT 94–98
[2023-06-24 16:52] LABS: Influenza A QL RT-PCR Negative (Negative); Influenza B QL RT-PCR Negative (Negative); RSV RNA, RT-PCR Negative (Negative); SARS-CoV-2 RNA PCR Positive (Negative)
--- NOTE | 2023-06-24 17:25 | ED.GENADULT ---
HPI - General Adult General Chief complaint: Upper Respiratory Infection Stated complaint: unknown Time Seen by Provider: 06/24/23 17:04 History of Present Illness HPI narrative: 68-year-old female presenting to the emergency department for evaluation of flu-like symptoms with cough and congestion that started yesterday. Related Data Home Medications Medication Instructions Recorded Confirmed alprazolam 0.25 mg tablet 09/10/19 magnesium oxide 400 mg PO DAILY 09/10/19 09/10/19 Allergies Allergy/AdvReac Type Severity Reaction Status Date / Time levofloxacin Allergy Severe Unknown Verified 06/11/23 19:36 Quinolones Allergy Unknown FACIAL RASH Verified 06/11/23 19:36 Sulfa (Sulfonamide Allergy Unknown RASH ALL Verified 06/11/23 19:36 Antibiotics) OVER sulfamethoxazole Allergy Unknown RASH ALL Verified 06/11/23 19:36 OVER trimethoprim Allergy Unknown RASH ALL Verified 06/11/23 19:36 OVER lidocaine AdvReac Rash Verified 06/11/23 19:36 Review of Systems Review of Systems: All systems reviewed & are unremarkable except as noted in HPI and below PMFSH Past Medical History Medical History ALS (amyotrophic lateral sclerosis) Anemia Anxiety Arthritis CREST syndrome Depression Fibroids Fibromyalgia History of angina History of menorrhagia Hyperthyroidism Kidney stones Systemic lupus erythematosus UTI (urinary tract infection) Surgical History Surgical History H/O inguinal hernia repair History of section History of cholecystectomy History of dilation and curettage History of gastric bypass History of lithotripsy History of repair of ACL rt knee History of thyroidectomy History of tubal ligation Family History Family History Other Family history of chronic obstructive pulmonary disease Social History Social History Smoking status: Former smoker Alcohol intake: never Substance use: never Exam Narrative: APPEARANCE: Well appearing, no pain, no distress, well-nourished. HEAD: normocephalic, atraumatic. EYES: PERRLA/EOMI, conjunctivae clear. NOSE: Normal no drainage EARS:TMS clear with good light reflex. THROAT: Pharynx clear, no exudate. NECK: Supple. No adenopathy, no masses. RESPIRATORY: Airway patent, respirations nonlabored. Clear to auscultation bilaterally, no rales, rhonchi, wheezing. CARDIOVASCULAR: Regular rate and rhythm without murmurs rubs or gallops. ABDOMINAL: Soft, nontender, nondistended, normal bowel sounds MUSCULOSKELETAL: Moves all extremities. Strength/ROM intact, No edema, No calf tenderness. NEURO: Alert. Cranial nerves II through XII intact. Good gait. Good coordination SKIN: Warm, dry. Normal Color Course Course Emergency Course: 68-year-old female presents emergency department for evaluation of cough congestion fever. Patient did test positive for COVID. Vital Signs Vital signs: Vital Signs Temperature 101.5 F H 06/24/23 15:34 Pulse Rate 94 06/24/23 15:34 Respiratory Rate 20 06/24/23 15:34 Blood Pressure 155/86 H 06/24/23 15:34 Pulse Oximetry 97 06/24/23 15:34 Oxygen Delivery Room Air 06/24/23 15:34 Temperature 99.5 F 06/24/23 18:38 Pulse Rate 84 06/24/23 18:57 Respiratory Rate 18 06/24/23 18:57 Blood Pressure 122/73 06/24/23 18:57 Pulse Oximetry 98 06/24/23 18:57 Oxygen Delivery Room Air 06/24/23 16:13 Medical Decision Making Differential Diagnosis Differential Diagnosis: Pneumonia, COVID, influenza, RSV Vital Signs Vital Signs: Vital Signs Temperature 101.5 F H 06/24/23 15:34 Pulse Rate 94 06/24/23 15:34 Respiratory Rate 20 06/24/23 15:34 Blood Pressure 155/86 H 06/24/23 15:34 Pulse Oximetry 97 06/24/23 15:34 Oxygen Delivery Room Air
[2023-06-24] MEDS: ACETAMINOPHEN 500 MG TABLET 1000 MG PO (17:58)
== END 2023-06-24 18:58 | disposition home or self-care (01) ==
PROVIDERS: Emergency Provider Emergency Medicine
DX: U07.1 COVID-19 (principal); Z20.822 Contact with and (suspected) exposure to COVID-19; G12.21 Amyotrophic lateral sclerosis; E89.0 Postprocedural hypothyroidism; M32.9 Systemic lupus erythematosus, unspecified; M79.7 Fibromyalgia; M34.1 CR(E)ST syndrome; M19.90 Unspecified osteoarthritis, unspecified site; F41.9 Anxiety disorder, unspecified; F32.A Depression, unspecified; Z98.84 Bariatric surgery status; Z87.442 Personal history of urinary calculi; Z87.440 Personal history of urinary (tract) infections; Z90.49 Acquired absence of other specified parts of digestive tract
CPT/HCPCS: 87637; 99283; A9270

== ENCOUNTER 2023-06-28 22:55 | Emergency (ER) | payer OTHER, MEDICAID, SELFPAY ==
[2023-06-28 23:18] VITALS: BP 126/64; PULSE 94; RESP 18; TEMP 36.3; O2SAT 100
[2023-06-28] MEDS: ACETAMINOPHEN 500 MG TABLET 1000 MG PO (23:55)
[2023-06-29 00:05] VITALS: RESP 18
[2023-06-29 00:09] LABS: Basophils Percent Auto 0.4 % (0.2-1.2); Eosinophils Percent Auto 0.8 % (0-4.4); Hematocrit 43.4 % (37.0-47.0); Hemoglobin 14.1 g/dL (12.0-15.0); Immature Granulocyte Absolute 0.01 K/mm3 (0.00-0.031); Immature Granulocyte Percent A 0.4 % (0-0.5); Lymphocytes Absolute Auto 1.01 K/mm3 (0.9-3.2); Lymphocytes Percent Auto 41.4 % (18.3-44.2); Mean Corpuscular HGB Conc 32.5 g/dl (32-36); Mean Corpuscular Hemoglobin 28.7 pg (26-34); Mean Corpuscular Volume 88.2 fl (80-100); Mean Platelet Volume 10.9 fl (7.4-10.4); Monocytes Absolute Auto 0.3 K/mm3 (0.1-0.6); Monocytes Percent Auto 11.1 % (2.6-8.5); Neutrophils Absolute Auto 1.1 K/mm3 (1.3-6.7); Neutrophils Percent Auto 45.9 % (45.5-73.1); Platelet Count Result 218 k/mm3 (150-375); Red Blood Count 4.92 M/mm3 (4.2-5.4); Red Cell Distribution Width 14.9 % (11.5-14.5); White Blood Count 2.4 K/mm3 (4.5-10.0)
[2023-06-29 00:20] LABS: Alanine Aminotransferase 14 U/L (6-35); Albumin Level 4.3 g/dL (3.5-5.1); Alkaline Phosphatase 122 U/L (38-126); Anion Gap 15 mmol/L (8-16); Aspartate Amino Transferase 27 U/L (14-36); Bilirubin,Total 0.9 mg/dL (0.2-1.3); Blood Urea Nitrogen 25 mg/dL (7-17); Calcium 9.6 mg/dL (8.4-10.2); Carbon Dioxide 23 mmol/L (22-30); Chloride 96 mmol/L (98-107); Estimated CRCL calculation 51 ml/min; Estimated Glomerular Filt Rate > 60; Glucose 88 mg/dL (65-110); Potassium 3.5 mmol/L (3.4-5.0); Sodium 134 mmol/L (137-145)
--- NOTE | 2023-06-29 00:27 | ED.GENADULT ---
HPI - General Adult General Chief complaint: Unspecified Stated complaint: reno palomino Time Seen by Provider: 06/28/23 23:10 Source: patient Mode of arrival: EMS Limitations: no limitations History of Present Illness HPI narrative: This is a 68-year-old female with PMH of ALS, SLE, recent diagnosis of COVID who presents to the ED with chief complaint of leg cramps beginning yesterday. She has not been feeling well with COVID recently. Patient reports the cramps are in right lower leg and somewhat in the left lower leg. Denies fevers, chills, redness or any lesions to the legs. Denies injury Related Data Home Medications Medication Instructions Recorded Confirmed alprazolam 0.25 mg tablet 09/10/19 magnesium oxide 400 mg PO DAILY 09/10/19 09/10/19 Allergies Allergy/AdvReac Type Severity Reaction Status Date / Time levofloxacin Allergy Severe Unknown Verified 06/11/23 19:36 Quinolones Allergy Unknown FACIAL RASH Verified 06/11/23 19:36 Sulfa (Sulfonamide Allergy Unknown RASH ALL Verified 06/11/23 19:36 Antibiotics) OVER sulfamethoxazole Allergy Unknown RASH ALL Verified 06/11/23 19:36 OVER trimethoprim Allergy Unknown RASH ALL Verified 06/11/23 19:36 OVER lidocaine AdvReac Rash Verified 06/11/23 19:36 Review of Systems Review of Systems: All systems as dictated in HPI PMFSH Past Medical History Medical History ALS (amyotrophic lateral sclerosis) Anemia Anxiety Arthritis CREST syndrome Depression Fibroids Fibromyalgia History of angina History of menorrhagia Hyperthyroidism Kidney stones Systemic lupus erythematosus UTI (urinary tract infection) Surgical History Surgical History H/O inguinal hernia repair History of section History of cholecystectomy History of dilation and curettage History of gastric bypass History of lithotripsy History of repair of ACL rt knee History of thyroidectomy History of tubal ligation Family History Family History Other Family history of chronic obstructive pulmonary disease Social History Social History Smoking status: Former smoker Alcohol intake: never Substance use: never Exam Narrative: GENERAL: Well-appearing, well-nourished, and in no acute distress. HEAD: Normocephalic, atraumatic. EYES: PERRLA and EOMI. ENT: Nares clear, no rhinorrhea or epistaxis. Mucous membranes moist. Oropharynx without tonsillar hypertrophy exudate or other lesions. NECK: Supple. No adenopathy or masses. CHEST: No respiratory distress. Clear to auscultation. No wheezes rales or rhonchi HEART: Regular rate and rhythm. No murmur heard. Normal peripheral pulses. ABDOMEN: Soft, nontender, nondistended, normal active bowel sounds. MSK: Normal range of motion. Full range of motion bilateral knees. Mild tenderness to the right calf, posterior knee and left posterior calf. No edema or swelling. SKIN: Warm, dry, no rash. No erythema, warmth or skin lesions to the legs. NEURO: Alert and oriented x3. No focal deficits. PSYCH: Normal mood and affect. Course Vital Signs Vital signs: Vital Signs Temperature 97.4 F L 06/28/23 23:18 Pulse Rate 94 06/28/23 23:18 Respiratory Rate 18 06/28/23 23:18 Blood Pressure 126/64 06/28/23 23:18 Pulse Oximetry 100 06/28/23 23:18 Oxygen Delivery Room Air 06/28/23 23:18 Temperature 97.4 F L 06/28/23 23:18 Pulse Rate 94 06/28/23 23:18 Respiratory Rate 18 06/28/23 23:18 Blood Pressure 126/64 06/28/23 23:18 Pulse Oximetry 100 06/28/23 23:18 Oxygen Delivery Room Air 06/28/23 23:18 Medical Decision Making [facility] Narrative Medical decision making narrative: This is a 68-year-old female who presents to the ED with chief complaint of a ?Evangelina h
[2023-06-29 00:39] LABS: Appearance Urine Turbid (Clear); Bacteria Urine 4+ /hpf; Bilirubin Urine Negative (Negative); Blood Urine 1+ (Negative); Color Urine Dark Yellow (Yellow); Glucose Urine UA Negative (Negative); Ketones Urine 1+ mg/dL (Negative); Leukocyte Esterase Ur 3+ LEU/UL (Negative); Nitrate Urine Positive (Negative); Non Pathogenic Casts >20; Protein Urine 3+ mg/dL (Negative); RBC Urine 21-50 /hpf (0-2); Specific Grav Ur 1.024 (1.001-1.035); Squamous Epithelial Cell Urine Few /hpf (Few); Triple Phosphate Crystal Urine Present /hpf; WBC Urine 51-100 /hpf; pH Urine >=9.0 (5.0-9.0)
[2023-06-29 00:41] LABS: Add Urine Microscopic? YES
[2023-06-29 03:21] VITALS: BP 128/66; PULSE 88; RESP 16; O2SAT 98
== END 2023-06-29 03:22 | disposition home or self-care (01) ==
PROVIDERS: Emergency Provider Physician Assistant
DX: M79.662 Pain in left lower leg (principal); M79.661 Pain in right lower leg; U07.1 COVID-19; G12.21 Amyotrophic lateral sclerosis; M32.9 Systemic lupus erythematosus, unspecified; M79.7 Fibromyalgia; M34.1 CR(E)ST syndrome; E89.0 Postprocedural hypothyroidism; F41.9 Anxiety disorder, unspecified; F32.A Depression, unspecified; Z86.2 Personal history of diseases of the blood and blood-forming organs and certain disorders involving the immune mechanism; Z87.442 Personal history of urinary calculi; Z87.440 Personal history of urinary (tract) infections; Z87.891 Personal history of nicotine dependence; Z90.49 Acquired absence of other specified parts of digestive tract; Z98.84 Bariatric surgery status
CPT/HCPCS: 36415; 80053; 81001; 85025; 87086; 87088; 99283; A9270

== ENCOUNTER 2023-07-08 12:59 | Emergency (ER) | payer OTHER, MEDICAID, SELFPAY ==
--- NOTE | ~2023-07-08 | CT_ITS ---
EXAMINATION: CT abdomen pelvis w con DATE: 07/08/2023 15:00 INDICATION: Abdominal distention. TECHNIQUE: Computed tomography (CT) of the abdomen and pelvis was performed with 100 mL Omnipaque 350 intravenous contrast. Automated exposure control and iterative reconstruction technique were employe d. The dose-length product was 1327.96 mGy-cm. COMPARISON: CT abdomen and pelvis 06/11/2023 FINDINGS: The visualized portions of the lung bases demonstrate mild atelectasis. Calcified left lung nodules and calcified left hilar and mediastinal lymph nodes are consistent with old granulomatous d isease. No pleural effusion. The heart size is normal. No pericardial effusion. The liver is normal. There are changes of cholecystectomy. Calcifications in the spleen are consistent with old granulomat ous disease. There are changes of gastric bypass procedure. The pancreas and adrenal glands are felice l. There is cortical thinning of the kidneys. The bladder is decompressed by a Quintanilla catheter. The ap pendix is normal. There are no pathologically enlarged lymph nodes. There is no free intraperitoneal fluid. There is severe lumbar spondylosis. IMPRESSION: 1. No etiology for the patient's symptoms. Reviewed, dictated and finalized at location A. APPRAISER
[2023-07-08 12:57] VITALS: BP 138/80; PULSE 42; RESP 18; TEMP 36.8; O2SAT 96
--- NOTE | 2023-07-08 13:15 | ED.FEMALEGU ---
HPI - Female Genitourinary General Chief complaint: Urogenital-Female Stated complaint: catheter leaking Time Seen by Provider: 07/08/23 13:05 History of Present Illness HPI Narrative: Patient is a 68 year old female with history of ALS, bedbound with indwelling noble catheter here with noble catheter complications. She notes that she typically gets the catheter changed every 2 weeks, last got it changed 1 week ago. She notes last night she started having some leaking around her catheter and there was decreased output from the catheter itself. She also notes she has not had a bowel movement for about 1 week. She denies flatulence. No prior abdominal surgeries. She does not typically struggle with constipation. No prior bowel obstruction. Related Data Home Medications Medication Instructions Recorded Confirmed alprazolam 0.25 mg tablet 09/10/19 magnesium oxide 400 mg PO DAILY 09/10/19 09/10/19 Allergies Allergy/AdvReac Type Severity Reaction Status Date / Time levofloxacin Allergy Severe Unknown Verified 06/11/23 19:36 Quinolones Allergy Unknown FACIAL RASH Verified 06/11/23 19:36 Sulfa (Sulfonamide Allergy Unknown RASH ALL Verified 06/11/23 19:36 Antibiotics) OVER sulfamethoxazole Allergy Unknown RASH ALL Verified 06/11/23 19:36 OVER trimethoprim Allergy Unknown RASH ALL Verified 06/11/23 19:36 OVER lidocaine AdvReac Rash Verified 06/11/23 19:36 Review of Systems Review of Systems: All systems reviewed & are unremarkable except as noted in HPI and below PMFSH Past Medical History Medical History ALS (amyotrophic lateral sclerosis) Anemia Anxiety Arthritis CREST syndrome Depression Fibroids Fibromyalgia History of angina History of menorrhagia Hyperthyroidism Kidney stones Systemic lupus erythematosus UTI (urinary tract infection) Surgical History Surgical History H/O inguinal hernia repair History of section History of cholecystectomy History of dilation and curettage History of gastric bypass History of lithotripsy History of repair of ACL rt knee History of thyroidectomy History of tubal ligation Family History Family History Other Family history of chronic obstructive pulmonary disease Social History Social History Smoking status: Former smoker Alcohol intake: never Substance use: never Exam Narrative: GENERAL: Well-appearing, well-nourished, and in no acute distress. HEAD: Normocephalic, atraumatic. EYES: PERRLA and EOMI. ENT: Nares clear. Mucous membranes moist. NECK: Supple. CHEST: Clear to auscultation. No respiratory distress. HEART: Bradycardic. Normal peripheral pulses. ABDOMEN: Soft, nontender, nondistended. EXTREMITIES: Normal range of motion. No edema. SKIN: Warm, dry, no rash. NEURO: No focal deficits. Decreased strength in bilateral lower extremities due to her ALS. Alert and oriented x3. PSYCH: Normal mood and affect. Course Course Emergency Course: Chart review performed. Patient here with leaking catheter and not properly draining. She is reportedly bedbound with hx of ALS. No BM this week. Triage vitals show HR of 42, normotensive, afebrile. It appears her HR on her last visit was in the 90s. Patient seen evaluated, nontoxic appearing. Abdomen is soft and nontender. Urinary catheter was changed prior to my evaluation. Nursing staff at bedside states that it seemed as though her balloon was not fully inflated and this was likely the cause of her leaking. They have successfully exchanged the catheter with good output. Urine sample sent down to lab. Given lack of flatulence with no history of constipation, will do CT abdomen pelvis to assess stool burden vs obstruction. Basic lab work additionally ordered. patient di
[2023-07-08 13:42] LABS: Appearance Urine Turbid (Clear); Bacteria Urine 4+ /hpf; Bilirubin Urine Negative (Negative); Blood Urine 3+ (Negative); Color Urine Yellow (Yellow); Glucose Urine UA Negative (Negative); Ketones Urine Negative (Negative); Leukocyte Esterase Ur 3+ LEU/UL (Negative); Need Manual Microscopic Reviewed; Nitrate Urine Positive (Negative); Non Pathogenic Casts >20; Protein Urine Trace mg/dL (Negative); RBC Urine 21-50 /hpf (0-2); Specific Grav Ur 1.008 (1.001-1.035); Squamous Epithelial Cell Urine Many /hpf (Few); Urobilinogen Urine 0.2 mg/dL (<2.0); WBC Urine >100 /hpf
[2023-07-08 13:44] LABS: Add Urine Microscopic? YES
--- NOTE | 2023-07-08 13:46 | ECG_ITS ---
Measurements Intervals [place] Rate: 78 P: 70 WA: 159 QRS: 13 QRSD: 98 T: 8 QT: 399 QTc: 455 Interpretive Statements SINUS RHYTHM WITH FREQUENT VENTRICULAR PREMATURE COMPLEXES LOW QRS VOLTAGE IN PRECORDIAL LEADS [QRS DEFLECTION < 1.0 mV IN CHEST LEADS] NONSPECIFIC T-WAVE ABNORMALITY ABNORMAL ECG COMPARED TO ECG 09/10/2019 09:40:59 NO SIGNIFICANT CHANGES Electronically Signed On 07-08-2023 14:59:42 REHABILITATION PHYSICIAN by Jean Claude Camacho M.D.
[2023-07-08 13:54] LABS: Basophils Percent Auto 0.6 % (0.2-1.2); Eosinophils Absolute Auto 0.1 K/mm3 (0-0.3); Eosinophils Percent Auto 1.4 % (0-4.4); Hematocrit 41.9 % (37.0-47.0); Hemoglobin 12.8 g/dL (12.0-15.0); Immature Granulocyte Absolute 0.01 K/mm3 (0.00-0.031); Immature Granulocyte Percent A 0.3 % (0-0.5); Lymphocytes Absolute Auto 1.51 K/mm3 (0.9-3.2); Lymphocytes Percent Auto 42.7 % (18.3-44.2); Mean Corpuscular HGB Conc 30.5 g/dl (32-36); Mean Corpuscular Hemoglobin 27.8 pg (26-34); Mean Corpuscular Volume 91.1 fl (80-100); Mean Platelet Volume 10.3 fl (7.4-10.4); Monocytes Absolute Auto 0.3 K/mm3 (0.1-0.6); Monocytes Percent Auto 8.5 % (2.6-8.5); Neutrophils Absolute Auto 1.7 K/mm3 (1.3-6.7); Neutrophils Percent Auto 46.5 % (45.5-73.1); Platelet Count Result 366 k/mm3 (150-375); Red Cell Distribution Width 15.3 % (11.5-14.5); White Blood Count 3.5 K/mm3 (4.5-10.0)
[2023-07-08 14:20] VITALS: BP 122/82; PULSE 94; RESP 14; O2SAT 96
[2023-07-08 14:20] LABS: Alanine Aminotransferase 15 U/L (6-35); Albumin Level 3.9 g/dL (3.5-5.1); Alkaline Phosphatase 91 U/L (38-126); Anion Gap 4 mmol/L (8-16); Aspartate Amino Transferase 27 U/L (14-36); Blood Urea Nitrogen 14 mg/dL (7-17); Calcium 9.4 mg/dL (8.4-10.2); Carbon Dioxide 34 mmol/L (22-30); Chloride 100 mmol/L (98-107); Estimated Glomerular Filt Rate > 60; Glucose 91 mg/dL (65-110); Potassium 3.6 mmol/L (3.4-5.0); Sodium 138 mmol/L (137-145)
[2023-07-08 14:27] LABS: Magnesium 1.8 mg/dL (1.6-2.3)
[2023-07-08 16:10] VITALS: PULSE 80; RESP 22; O2SAT 95
[2023-07-08 17:30] VITALS: BP 136/84; PULSE 90; RESP 17; O2SAT 98
== END 2023-07-08 18:03 | disposition home or self-care (01) ==
PROVIDERS: Emergency Provider Student in an Organized Health Care Education/Training Program
DX: N39.0 Urinary tract infection, site not specified (principal); K59.00 Constipation, unspecified; T83.9XXA Unspecified complication of genitourinary prosthetic device, implant and graft, initial encounter; Z87.891 Personal history of nicotine dependence
CPT/HCPCS: 36415; 51702; 74177; 80053; 81001; 83735; 85025; 87077; 87086; 87186; 93005; 96365; 99284; J0696; Q9967